=== PATIENT | female | born 1965 | race Caucasian/White ===

== ENCOUNTER 2017-07-15 10:46 | Emergency (ER) | payer BC ==
[~2017-07-15] VITALS: Ht 162.6 cm; Wt 94.3 kg
[~2017-07-15 10:46] MED LIST: CYCL10 PO; IBUP600 PO; IBUP800 PO; LORTAB 10-3251 EACH PO; METCAR750 PO; Mobic7.5 MG PO; Norco 10-325 T1 EACH PO; Norco 5-325 Ta1 EACH PO; OMEP20ER PO; OMEP40CA12 PO; OXYC10TA19; Percocet 10-321 EACH PO; Roxicodone5 MG PO; Sudogest60 MG PO; VICODIN HP 10-1 EACH PO; Valium5 MG PO
[2017-07-15] MEDS ORDERED: Omeprazole20 M1 PO (10:59)
[2017-07-15] MEDS ORDERED: VICODIN 5-3001 EACH PO (10:59)
[2017-07-15] MEDS ORDERED: TOPI25 PO (10:59)
[2017-07-15] MEDS ORDERED: MELO7.5 PO (10:59)
[2017-07-15] MEDS ORDERED: Cleocin HCl300 MG PO (11:31)
[2017-07-15] MEDS ORDERED: NAPR550 PO (11:31)
== END 2017-07-15 12:09 | disposition home or self-care (01) ==
LOC: ER 10:46
DX: K04.7 Periapical abscess without sinus (principal); Z88.0 Allergy status to penicillin; Z88.8 Allergy status to other drugs, medicaments and biological substances; Z91.018 Allergy to other foods; Z79.899 Other long term (current) drug therapy; Z87.891 Personal history of nicotine dependence
CPT/HCPCS: 96365; 96375; 99283; J1885

== ENCOUNTER → 2017-12-11 | Outpatient (CLI) | payer BC ==
[~2017-12-11] MED LIST changes: +Cleocin HCl300 MG PO; +MELO7.5 PO; +NAPR550 PO; +Omeprazole20 M1 PO; +TOPI25 PO; +VICODIN 5-3001 EACH PO
== END | disposition home or self-care (01) ==
LOC: LAB SHORT 14:15 → LAB SRC 14:15
DX: G89.4 Chronic pain syndrome (principal); Z79.899 Other long term (current) drug therapy
CPT/HCPCS: G0480

== ENCOUNTER 2019-04-30 16:07 | Emergency (ER) | payer BC ==
[~2019-04-30] VITALS: Ht 160 cm; Wt 93.0 kg
[2019-04-30 16:43] LABS: BASOPHILS ABSOLUTE AUTO 0.04 K/mm3 (0.00-0.23); BASOPHILS PERCENT AUTO 0 % (0-2); EOSINOPHILS ABSOLUTE AUTO 0.19 K/mm3 (0.00-0.68); EOSINOPHILS PERCENT AUTO 2 % (0-6); Hematocrit 43.3 % (33.0-51.0); Hemoglobin 13.8 g/dL (11.5-16.0); IMMATURE GRAN ABSOLUTE AUTO 0.02 K/mm3 (0.00-0.10); IMMATURE GRAN PERCENT AUTO 0 % (0-1); LYMPHOCYTES ABSOLUTE AUTO 3.13 K/mm3 (0.84-5.20); LYMPHOCYTES PERCENT AUTO 34 % (21-46); MONOCYTES PERCENT AUTO 6 % (4-13); Mean Corpuscular HGB 28.6 pg (26.0-34.0); Mean Corpuscular HGB Conc 31.9 g/dL (31.5-36.5); Mean Corpuscular Volume 90 fL (80-100); Mean Platelet Volume 9.2 fL (9.1-12.4); NEUTROPHILS ABSOLUTE AUTO 5.23 K/mm3 (1.96-9.15); NEUTROPHILS PERCENT AUTO 57 % (41-73); Platelet Count 358 K/mm3 (150-400); RDW Coefficient Variation 13.4 % (11.7-14.2); RDW Standard Deviation 44.3 fL (35.1-46.3); Red Blood Cell Count 4.82 M/mm3 (3.80-5.20); White Blood Cell Count 9.11 K/mm3 (4.00-11.30)
[2019-04-30 17:12] LABS: Alanine Aminotransfer (ALT/SGP 23 U/L (12-78); Albumin, Blood 3.6 g/dL (3.4-5.0); Alk Phos 72 U/L (50-136); Anion Gap 4 mmol/L (6-16); Aspartate Aminotrans (AST/SGOT 12 U/L (12-37); Bilirubin, Total 0.3 mg/dL (0.1-1.0); Blood Urea Nitrogen 13 mg/dL (8-24); Bun/Creatinine Ratio 16.2 (12.0-20.0); CO2, Blood 26 mmol/L (21-32); Calcium, Blood 8.5 mg/dL (8.5-10.1); Chloride, Blood 109 mmol/L (98-108); Globulin, Blood 3.7 g/dL (2.2-4.0); Glomerular Filtration Rate >60 (60-); Glucose, Blood 84 mg/dL (70-99); Potassium, Blood 3.8 mmol/L (3.5-5.5); Sodium, Blood 139 mmol/L (136-145); Total Protein, Blood 7.3 g/dL (6.4-8.2)
[2019-04-30 17:27] LABS: Source, Urine Clean Catch
[2019-04-30 17:46] LABS: Appearance, Urine Clear (Clear); Bilirubin, Urine Neg (Neg); Blood, Urine Neg (Neg); Color, Urine Yellow (P-Yellow); Glucose Qualitative, Urine Neg (Neg); Ketones, Urine Neg (Neg); Leukocyte Esterase, Urine Neg (Neg); Nitrite, Urine Neg (Neg); Protein, Urine Neg (Neg); Specific Gravity, Urine 1.015 (1.003-1.022); Urobilinogen, Urine NORM (Normal); pH, Urine 6.5 (5.0-8.0)
[2019-04-30] MEDS ORDERED: KETO10 PO (19:19)
[2019-04-30] MEDS ORDERED: LIDO700A20 TOP (19:19)
== END 2019-04-30 20:21 | disposition home or self-care (01) ==
LOC: ER 16:07
PROVIDERS: Physician Assistant
DX: S39.012A Strain of muscle, fascia and tendon of lower back, initial encounter (principal); F17.200 Nicotine dependence, unspecified, uncomplicated; Z88.0 Allergy status to penicillin; Z91.018 Allergy to other foods; Z88.8 Allergy status to other drugs, medicaments and biological substances; Z79.899 Other long term (current) drug therapy; X58.XXXA Exposure to other specified factors, initial encounter
CPT/HCPCS: 36415; 74176; 80053; 81003; 83690; 85025; 96374; 96375; 99284-25; A9270; J1885; J2405

== ENCOUNTER 2019-05-23 19:56 | Emergency (ER) | payer BC ==
[~2019-05-23] VITALS: Ht 160 cm; Wt 93.0 kg
[~2019-05-23 19:56] MED LIST changes: +KETO10 PO; +LIDO700A20 TOP
[2019-05-23 21:06] LABS: BASOPHILS ABSOLUTE AUTO 0.04 K/mm3 (0.00-0.23); BASOPHILS PERCENT AUTO 0 % (0-2); EOSINOPHILS ABSOLUTE AUTO 0.07 K/mm3 (0.00-0.68); EOSINOPHILS PERCENT AUTO 1 % (0-6); Hemoglobin 13.2 g/dL (11.5-16.0); IMMATURE GRAN ABSOLUTE AUTO 0.04 K/mm3 (0.00-0.10); IMMATURE GRAN PERCENT AUTO 0 % (0-1); LYMPHOCYTES PERCENT AUTO 35 % (21-46); MONOCYTES ABSOLUTE AUTO 0.82 K/mm3 (0.16-1.47); MONOCYTES PERCENT AUTO 7 % (4-13); Mean Corpuscular HGB 28.6 pg (26.0-34.0); Mean Corpuscular HGB Conc 32.2 g/dL (31.5-36.5); Mean Corpuscular Volume 89 fL (80-100); Mean Platelet Volume 9.4 fL (9.1-12.4); NEUTROPHILS ABSOLUTE AUTO 6.77 K/mm3 (1.96-9.15); NEUTROPHILS PERCENT AUTO 57 % (41-73); Platelet Count 345 K/mm3 (150-400); RDW Coefficient Variation 13.5 % (11.7-14.2); RDW Standard Deviation 44.1 fL (35.1-46.3); Red Blood Cell Count 4.61 M/mm3 (3.80-5.20); White Blood Cell Count 11.84 K/mm3 (4.00-11.30)
[2019-05-23 21:20] LABS: Alanine Aminotransfer (ALT/SGP 22 U/L (12-78); Albumin, Blood 3.8 g/dL (3.4-5.0); Albumin/Globulin Ratio 1.1 (0.8-1.8); Alk Phos 72 U/L (50-136); Anion Gap 3 mmol/L (6-16); Aspartate Aminotrans (AST/SGOT 11 U/L (12-37); Bilirubin, Total 0.4 mg/dL (0.1-1.0); Blood Urea Nitrogen 21 mg/dL (8-24); Bun/Creatinine Ratio 28.9 (12.0-20.0); CO2, Blood 27 mmol/L (21-32); Calcium, Blood 8.5 mg/dL (8.5-10.1); Chloride, Blood 110 mmol/L (98-108); Creatinine, Blood 0.73 mg/dL (0.40-1.00); Globulin, Blood 3.6 g/dL (2.2-4.0); Glomerular Filtration Rate >60 (60-); Glucose, Blood 101 mg/dL (70-99); Potassium, Blood 3.7 mmol/L (3.5-5.5); Sodium, Blood 140 mmol/L (136-145); Total Protein, Blood 7.4 g/dL (6.4-8.2); Troponin I <0.015 ng/mL (0.000-0.040)
== END 2019-05-24 01:15 | disposition home or self-care (01) ==
LOC: ER 19:56
PROVIDERS: Emergency Medicine
DX: R07.9 Chest pain, unspecified (principal); Z88.0 Allergy status to penicillin; Z88.8 Allergy status to other drugs, medicaments and biological substances; Z91.018 Allergy to other foods; Z79.899 Other long term (current) drug therapy; Z87.891 Personal history of nicotine dependence
CPT/HCPCS: 36415; 71046; 80053; 83690; 84484; 85025; 93005; 93010; 99285-25

== ENCOUNTER 2020-09-08 06:45 | Day surgery (SDC) | payer OTHER ==
[~2020-09-08] VITALS: Ht 160 cm; Wt 102.5 kg
[2020-09-08] MEDS ORDERED: ATOR20 (07:19)
--- NOTE | 2020-09-08 10:03 | NUR ---
09/08/20 1003 Alma An PT. C/O ABD. BEING UNCOMFORTABLE. PT. RATING A "4". DR. CHRISTOPHER EXPLAINED TO PT. THAT SHE HAD A TIGHT COLON TO GET MANEUVER AROUND. PT. ALSO INSTRUCTED THAT THERE COULD BE SOME AIR THAT WILL EVENTUALLY WILL ABSORB OR JUST TO PASS OUT. PT. DESCRIBES CRAMPING. PT. GIVEN A DIVERTICULOSIS/HIGH FIBER PAMPLET. PT. INSTRUCTED TO CALL IF ABD. DISCOMFORT DIDN'T GET BETTER.
--- NOTE | 2020-09-08 15:35 | NUR ---
09/08/20 1535 Candice Ramos LATE ENTRY FOR TODAY PATIENT WAS VERY DIFFICULT TO SEDATE FOR UPPER ENDOSCOPY. PT WOULD HOLD HER BREATH AND THEN HAVE COUGHING SPELLS. JAW THRUST WAS NEEDED INTERMITTENTLY TO KEEP HER O2 SATS ABOVE 90%. O2 WAS SET AT 5LPM. PATIENT SHOULD BE SEDATED BY ANESTHESIOLOGIST FOR NEXT PROCEDURE.
== END 2020-09-08 09:55 | disposition home or self-care (01) ==
LOC: ORSCSDS 06:45
PROVIDERS: Internal Medicine Gastroenterology
PROC: 0DB98ZX Excision of Duodenum, Via Natural or Artificial Opening Endoscopic, Diagnostic (ICD-10-PCS; principal; 2020-09-08 08:00)
PROC: 0DJD8ZZ Inspection of Lower Intestinal Tract, Via Natural or Artificial Opening Endoscopic (ICD-10-PCS; principal; 2020-09-08 08:00)
PROC: 0DB78ZX Excision of Stomach, Pylorus, Via Natural or Artificial Opening Endoscopic, Diagnostic (ICD-10-PCS; principal; 2020-09-08 08:00)
PROC: 0D758ZZ Dilation of Esophagus, Via Natural or Artificial Opening Endoscopic (ICD-10-PCS; principal; 2020-09-08 08:00)
DX: K22.2 Esophageal obstruction (principal); K44.9 Diaphragmatic hernia without obstruction or gangrene; K57.30 Diverticulosis of large intestine without perforation or abscess without bleeding; K64.8 Other hemorrhoids; Z12.11 Encounter for screening for malignant neoplasm of colon; Z80.0 Family history of malignant neoplasm of digestive organs; Z86.010 Personal history of colon polyps; J45.909 Unspecified asthma, uncomplicated; R11.2 Nausea with vomiting, unspecified; R10.13 Epigastric pain; E11.9 Type 2 diabetes mellitus without complications; Z79.899 Other long term (current) drug therapy; Z87.891 Personal history of nicotine dependence
CPT/HCPCS: 82947; 88305; 88342; C1726; J0461; J2405; J2704; J7120

== ENCOUNTER 2021-03-09 20:35 | Emergency (ER) | payer OTHER ==
[~2021-03-09] VITALS: Ht 160 cm; Wt 94.8 kg
[~2021-03-09 20:35] MED LIST changes: +ATOR20
== END 2021-03-09 21:54 | disposition left against medical advice (07) ==
LOC: ER 20:35
DX: T17.228A Food in pharynx causing other injury, initial encounter (principal); Z53.21 Procedure and treatment not carried out due to patient leaving prior to being seen by health care provider
CPT/HCPCS: 70360; 99283-25

== ENCOUNTER 2021-10-20 06:04 | Inpatient (IN) | payer OTHER ==
[~2021-10-20] VITALS: Ht 160 cm; Wt 108.0 kg
[~2021-10-20 06:04] MED LIST changes: -ATOR20; +ATOR20 PO
[2021-10-20] MEDS ORDERED: SUCR1 PO (06:26)
[2021-10-20] MEDS ORDERED: ALBU90OI INH (06:26)
--- NOTE | 2021-10-20 07:07 | NUR ---
Ambulatory in Day Surgery History, Chart, Medications and Allergies reviewed before start of procedure. Lungs clear T/O to Auscultation. Pre-Op teaching done. Pt verbalizes understanding.
--- NOTE | 2021-10-20 09:00 | NUR ---
10/20/21 0900 David Mccarty PT VOIDED JUST PRIOR TO ENTERING OR. NO MOJICA PER SURGEON. RIGHT UPPER EXTREMITY BLOCK PERFORMED BY ANESTHESIA PRIOR TO INTUBATING PATIENT.
--- NOTE | 2021-10-20 18:16 | NUR ---
Pt. Spiritual Care Request Pt. is in bed and welcomes my visit. Pt. is pleasant, even after a major surgery. Pt. is unsettled about the possibility of re-injuring her shoulder. Listen empathetically. Pt. displays evidence of focus, motivation and intention. Prayed with Pt. Pt. verbalized gratitude for the spiritual care visit.
--- NOTE | 2021-10-20 19:20 | NUR ---
SHIFT SUMMARY PATIENT NEW ADMIT TO UNIT FROM PACU FOLLOWING R REVERSE TOTAL SHOULDER WITH DR PAULINO. PATIENT SLEPT FOR FIRST COUPLE HOURSE. WOKE UP AND EXPERIENCED NAUSEA AND PAIN. MEDICATED PER EMAR. AMBULATED TO BATHROOM SBA AND VOIDED. RIGHT SHOULDER WITH PRINEO DRESSING OVER INCISION. C/D/I. RIGHT ARM IN SLING AND NWB. PLAN TO DISCHARGE HOME WHEN SHE CLEARS PHYSICAL THERAPY TOMORROW 10/21/21.
--- NOTE | 2021-10-21 04:36 | NUR ---
SHIFT SUMMARY PT POD 0 RIGHT SHOULDER REVERSAL. PT HAD SOME N/V DURING SHIFT CHANGE THAT RESOLVED AFTER BEING MEDICATED PER EMAR. PT HAS BEEN ABLE TO KEEP FLUIDS DOWN AND HAS NOT HAD ANY ISSUES WITH N/V FOR THE DURATION OF THE SHIFT. PT HAS HAD INTERMITTENT PAIN, PAIN CONTROLLED PER EMAR. RIGHT ARM REMAINS IN SLING. PT HAS BEEN UP AND AMBULATING. VITALS STABLE. PLAN IS FOR DISCHARGE TODAY. BED IN LOWEST POSITION, CALL LIGHT WITHIN REACH.
[2021-10-21 05:21] LABS: BASOPHILS ABSOLUTE AUTO 0.02 K/mm3 (0.00-0.23); BASOPHILS PERCENT AUTO 0 % (0-2); EOSINOPHILS PERCENT AUTO 0 % (0-6); Hematocrit 40.2 % (33.0-51.0); Hemoglobin 12.5 g/dL (11.5-16.0); IMMATURE GRAN ABSOLUTE AUTO 0.05 K/mm3 (0.00-0.10); IMMATURE GRAN PERCENT AUTO 0 % (0-1); LYMPHOCYTES ABSOLUTE AUTO 1.61 K/mm3 (0.84-5.20); LYMPHOCYTES PERCENT AUTO 11 % (21-46); MONOCYTES ABSOLUTE AUTO 0.94 K/mm3 (0.16-1.47); MONOCYTES PERCENT AUTO 6 % (4-13); Mean Corpuscular HGB 28.2 pg (26.0-34.0); Mean Corpuscular HGB Conc 31.1 g/dL (31.5-36.5); Mean Corpuscular Volume 91 fL (80-100); Mean Platelet Volume 9.3 fL (9.1-12.4); NEUTROPHILS ABSOLUTE AUTO 12.45 K/mm3 (1.96-9.15); NEUTROPHILS PERCENT AUTO 83 % (41-73); Platelet Count 279 K/mm3 (150-400); RDW Coefficient Variation 13.2 % (11.7-14.2); RDW Standard Deviation 44.6 fL (35.1-46.3); Red Blood Cell Count 4.43 M/mm3 (3.80-5.20); White Blood Cell Count 15.07 K/mm3 (4.00-11.30)
[2021-10-21 05:57] LABS: Bun/Creatinine Ratio 24.9 (12.0-20.0); Calcium, Blood 8.3 mg/dL (8.5-10.1); Creatinine, Blood 0.84 mg/dL (0.40-1.00); Magnesium, Blood 1.9 mg/dL (1.6-2.4); Potassium, Blood 4.3 mmol/L (3.5-5.5)
[2021-10-21] MEDS ORDERED: ACET500 PO (09:05)
[2021-10-21] MEDS ORDERED: Norco 5-325 Ta1 EACH PO (09:07)
--- NOTE | 2021-10-21 10:18 | NUR ---
DISCHARGE SUMMARY PT A&OX4, VSS/RA, PAIN MANAGED WELL WITH 5-10 NORCO, MAIA PO, VOIDING WELL, INDEPENDENT IN ROOM/DRESSED SELF, DECLINED WC TO DC AND GO HOME WITH , WITH ALL PERSONAL POSSESSIONS INCLUDING DC PACKET/SCRIPT SENT TO [facility] ON [address]. IV DC'D.
== END 2021-10-21 10:10 | disposition home or self-care (01) | DRG 483 ==
LOC: SURS 06:04 → PRE IP 07:30 → SURS 13:18
PROVIDERS: ADMIT Orthopaedic Surgery
PROC: 0RRJ00Z Replacement of Right Shoulder Joint with Reverse Ball and Socket Synthetic Substitute, Open Approach (ICD-10-PCS; principal; 2021-10-20 07:30)
DX: M12.811 Other specific arthropathies, not elsewhere classified, right shoulder (principal); Z68.41 Body mass index [BMI] 40.0-44.9, adult; E66.01 Morbid (severe) obesity due to excess calories; G89.29 Other chronic pain; K21.9 Gastro-esophageal reflux disease without esophagitis; J45.909 Unspecified asthma, uncomplicated; M79.7 Fibromyalgia; I10 Essential (primary) hypertension; E11.43 Type 2 diabetes mellitus with diabetic autonomic (poly)neuropathy; K31.84 Gastroparesis; Z87.81 Personal history of (healed) traumatic fracture; Z90.49 Acquired absence of other specified parts of digestive tract; Z98.890 Other specified postprocedural states; Z98.51 Tubal ligation status; Z90.710 Acquired absence of both cervix and uterus; Z88.0 Allergy status to penicillin; Z88.5 Allergy status to narcotic agent; Z91.018 Allergy to other foods; Z79.899 Other long term (current) drug therapy
CPT/HCPCS: 36415; 73030; 80048; 82947; 83735; 85025; 97110; 97161; 97530; A9270; C1776; J0171; J0690; J0735; J1100; J1170; J1885; J2250; J2370; J2405; J2704; J2765; J2795; J3010; J7120

== ENCOUNTER → 2023-06-07 | Outpatient (CLI) | payer OTHER ==
[~2023-06-07] MED LIST changes: +ACET500 PO; +ALBU90OI INH; +Flonase 0.05% N16 GM; +Lisinopril2.5 MG PO; +PREMARIN VAG CREAM VAG; +SUCR1 PO
[2023-06-07 13:03] LABS: Source, Urine Clean Catch
[2023-06-07 15:06] LABS: Appearance, Urine Hazy (Clear); Bilirubin, Urine Neg (Neg); Blood, Urine Neg (Neg); Color, Urine Yellow (P-Yellow); Glucose Qualitative, Urine Neg (Neg); Ketones, Urine Neg (Neg); Leukocyte Esterase, Urine Neg (Neg); Nitrite, Urine Neg (Neg); Protein, Urine 1+ (Neg); Specific Gravity, Urine 1.015 (1.003-1.022); Urobilinogen, Urine NORM (Normal)
[2023-06-07 15:26] LABS: Amorphous Light (0-Heavy); Bacteria Few /hpf; Red Blood Cells, Urine Not Seen /hpf (0-2); Squamous Epithelial Cells Mod /hpf (Few); White Blood Cells, Urine 0-2 /hpf (0-5)
== END ==
LOC: LAB SHORT 13:01 → LAB 13:01
PROVIDERS: Obstetrics & Gynecology
DX: Z01.818 Encounter for other preprocedural examination (principal)
CPT/HCPCS: 81001

== ENCOUNTER 2023-06-19 06:10 | Day surgery (SDC) | payer OTHER ==
[2023-06-19] VITALS (16 sets, daily range): BP systolic 112–151; BP diastolic 50–96
[~2023-06-19] VITALS: Ht 152.4 cm; Wt 94.6 kg
[2023-06-19] MEDS ORDERED: Lactated Ringer's 1,000 ML IV SCH (06:20)
[2023-06-19] MEDS ORDERED: propofoL 20 ML IV ONE (06:59)
[2023-06-19] MEDS ORDERED: Lidocaine HCl 2% 20 ML MDV ONE (06:59)
[2023-06-19] MEDS ORDERED: FentaNYL Citrate 50 MCG/ML 2 ML Injection ONE ×3 (07:00→09:50)
[2023-06-19] MEDS ORDERED: TRIDERM28.4 GM TOP (07:09)
[2023-06-19] MEDS ORDERED: METO5A PO (07:09)
[2023-06-19] MEDS ORDERED: DICLOFENAC SODI50 GM TOP (07:10)
[2023-06-19] MEDS ORDERED: LIDO700A20 TOP (07:12)
[2023-06-19] MEDS ORDERED: Bupivacaine 0.5% HCl 5 MG/ML 30MLVIAL ONE (07:13)
[2023-06-19] MEDS ORDERED: Ipratropium/Albuterol SulF 2.5-0.5MG/3 ML Amp INH ONE (07:15)
[2023-06-19] MEDS ORDERED: Midazolam HCl 1MG / ML 2ML Vial IV ONE (07:15)
[2023-06-19] MEDS ORDERED: Lidocaine HCl 2% Jelly 120MG/6ML SYR (20MG PER ML) ONE (07:18)
[2023-06-19] MEDS ORDERED: Rocuronium Bromide 10 MG/ML 5ML Injection IV ONE (07:19)
--- NOTE | 2023-06-19 07:34 | NUR ---
History, Chart, Medications and Allergies reviewed before start of procedure. Patient up to Ambulate independently. Gait steady. Pre-Op teaching done. Pt verbalizes understanding. Patient confirms NPO status and agrees with scheduled surgery. Patient States Post-Procedure ride home has been arranged.
[2023-06-19] MEDS ORDERED: EpiNEPhrine 1 MG/1 ML 1ML Vial ONE (07:37)
[2023-06-19] MEDS ORDERED: Dexamethasone Sod Phos 10 MG/ML 1ML VIAL ONE (07:45)
[2023-06-19] MEDS ORDERED: Ondansetron HCl 2 MG / ML 2ML Vial ONE (07:45)
[2023-06-19] MEDS ORDERED: Metoclopramide HCl 5MG / ML 2ML Vial IV PRN ×2 (08:00→11:15)
[2023-06-19] MEDS ORDERED: FentaNYL Citrate 50 MCG/ML 2 ML Injection IV PRN ×4 (08:00→09:35)
[2023-06-19] MEDS ORDERED: Ondansetron HCl 2 MG / ML 2ML Vial IV PRN ×3 (08:05→11:15)
[2023-06-19] MEDS ORDERED: Phenylephrine HCl 100 MCG/ML-NS 10MLSYR (1MG/10ML) ONE (08:07)
[2023-06-19] MEDS ORDERED: Glycopyrrolate 0.2 MG/ML 5ML VIAL ONE (08:26)
--- NOTE | 2023-06-19 08:26 | NUR ---
06/19/23 0826 Elisha Dobbs 30MLS OF BUPIVACAINE 0.5% MIXED WITH EPI 0.15MLS BY DR. FORDE TO CREATE A SOLUTION OF BUPIVACAINE 0.5% WITH EPI 1:200,000. SOLUTION POURED ONTO STERILE FIELD FOR USE DURING CASE.
[2023-06-19] MEDS ORDERED: Sugammadex Sodium 200 MG/2ML SDV (100 MG/ML) ONE (09:01)
[2023-06-19] MEDS ORDERED: Estradiol Vag Cream 0.1 MG/G 42.5 GM Tube VAG ONE (09:10)
[2023-06-19] MEDS ORDERED: Ketorolac Tromethamine 30mg Vial ONE (09:16)
[2023-06-19] MEDS ORDERED: Ketorolac Tromethamine 30mg Vial IV PRN (09:35)
[2023-06-19] MEDS ORDERED: Simethicone 80 MG Chew PO PRN (09:35)
[2023-06-19] MEDS ORDERED: Acetaminophen 500 MG Tab PO PRN (09:35)
[2023-06-19] MEDS ORDERED: Ibuprofen 400 MG Tab PO PRN (09:35)
[2023-06-19] MEDS ORDERED: FLU VACC QS2023-24(6MOS UP)/PF 60 MCG/0.5 ML SYRINGE IM SCH (09:35)
--- NOTE | 2023-06-19 12:36 | NUR ---
POST OP: REPORT RECEIVED FROM HORSE TRAINER KIM. PT TO UNIT AT 1040. PT IS A/O, VSS. REPORTS PAIN 6/10 AND MEDICATED PER EMAR. MOJICA DRAINING WELL, NO VAGINAL BLEED. PT ORIENTED TO ROOM, CALL LIGHT IN REACH
--- NOTE | 2023-06-19 12:37 | NUR ---
REPORT PASSED TO DANILO KOHLER
[2023-06-19 17:29] LABS: BASOPHILS ABSOLUTE AUTO 0.01 K/mm3 (0.00-0.23); BASOPHILS PERCENT AUTO 0 % (0-2); EOSINOPHILS PERCENT AUTO 0 % (0-6); Hematocrit 40.5 % (33.0-51.0); IMMATURE GRAN ABSOLUTE AUTO 0.04 K/mm3 (0.00-0.10); IMMATURE GRAN PERCENT AUTO 0 % (0-1); LYMPHOCYTES ABSOLUTE AUTO 0.66 K/mm3 (0.84-5.20); LYMPHOCYTES PERCENT AUTO 5 % (21-46); MONOCYTES ABSOLUTE AUTO 0.24 K/mm3 (0.16-1.47); MONOCYTES PERCENT AUTO 2 % (4-13); Mean Corpuscular HGB 28.6 pg (26.0-34.0); Mean Corpuscular HGB Conc 32.1 g/dL (31.5-36.5); Mean Corpuscular Volume 89 fL (80-100); Mean Platelet Volume 9.1 fL (9.1-12.4); NEUTROPHILS ABSOLUTE AUTO 11.63 K/mm3 (1.96-9.15); NEUTROPHILS PERCENT AUTO 93 % (41-73); Platelet Count 312 K/mm3 (150-400); RDW Coefficient Variation 13.6 % (11.7-14.2); RDW Standard Deviation 44.9 fL (35.1-46.3); Red Blood Cell Count 4.54 M/mm3 (3.80-5.20); White Blood Cell Count 12.58 K/mm3 (4.00-11.30)
--- NOTE | 2023-06-19 17:56 | NUR ---
PACKING OUT AND MOJICA REMOVED NOW
--- NOTE | 2023-06-19 18:50 | NUR ---
SHIFT SUMMARY PT A&OX4, VSS/RA, MAIA PO H20 ONLY/REFUSED FOOD (EVEN WITH DIETARY CONSULT - PT REFUSED ALL FOOD), AMB INDEPENDENTLY/DRESSED SELF, PAIN MANAGED WITH TYLENOL AND TORADOL. 1830 REMOVED PACKING AND THEN REMOVED MOJICA, PT HAS VOIDED A SMALL AMOUNT WITH A SMALL AMT OF RED BLOOD. PT DENIES N&V, PAIN, DIZZINESS, LIGHTHEADEDNESS. PLAN IS FOR PATIENT TO DISCHARGE WHEN SHE VOIDS A LARGER AMOUNT. WILL REPORT TO NEXT RN.
--- NOTE | 2023-06-19 20:40 | NUR ---
DISCHARGE SUMMARY A&0 x4. TOLERTATING ORALS. ABULATING/TOILETING INDEPENDENTLY. PT REPORTS PAIN MANAGED. DISCHARGED VIA POV c S/O DRIVING PATIENT @ EMERGENCY ENTRANCE. DISCHARGE INSTRUCTIONS GIVEN, ALL PERSONAL BELONGINGS WITH PATIENT.
== END 2023-06-19 20:40 | disposition home or self-care (01) ==
LOC: ORSCMMR 06:10 → SURS 06:10 → ORSCMMR 06:11 → ORD 07:30 → ORSCMMR 07:30 → SURS 10:33 → ORSCMMR 20:40
PROVIDERS: Obstetrics & Gynecology
PROC: 0JQC0ZZ Repair Pelvic Region Subcutaneous Tissue and Fascia, Open Approach (ICD-10-PCS; principal; 2023-06-19 07:30)
DX: N81.6 Rectocele (principal); N81.5 Vaginal enterocele; K21.9 Gastro-esophageal reflux disease without esophagitis; E11.9 Type 2 diabetes mellitus without complications; F32.A Depression, unspecified; M79.7 Fibromyalgia; Z79.899 Other long term (current) drug therapy
CPT/HCPCS: 36415; 82947; 85025; 94762; A9270; J0171; J1100; J1885; J2250; J2371; J2405; J2704; J3010; J7120

== ENCOUNTER 2023-11-22 14:03 | Day surgery (SDC) | payer OTHER ==
[~2023-11-22] VITALS: Ht 162.6 cm; Wt 95.3 kg
[~2023-11-22 14:03] MED LIST changes: +Atropine Sulfate 0.1 MG/ML 10ML SYR ONE; +DICLOFENAC SODI50 GM TOP; +Glycopyrrolate 0.2 MG/ML 1MLVIAL ONE; +Lactated Ringer's 1,000 ML IV ONE; +Lidocaine 2% 5 ML SDV ONE; +Lidocaine HCl/Pf 1% 5 ML VIAL ONE; +METO5A PO; +Methylene Blue 1% 100 MG/10 ML VIAL ONE; +Ondansetron HCl 2 MG / ML 2ML Vial ONE; +TRIDERM28.4 GM TOP; +ePHEDrine Sulfate 50 MG/ML 1ML Injection ONE; +propofoL 50 ML IV ONE
[2023-11-22] MEDS ORDERED: ONDA4 (14:23)
--- NOTE | 2023-11-22 15:13 | NUR ---
11/22/23 1513 Alma An S CBD 60, DR. OAKLEY NOTIFIED. PT. NOT HAVING ANY SYMPTOMS OF DIZZINESS, PT. VERBALIZES FEELING FINE. NO ORDERS GIVEN. DR. OAKLEY
[2023-11-22] MEDS ORDERED: Lactated Ringer's 1,000 ML IV ONE (15:15)
[2023-11-22] MEDS ORDERED: Ipratropium/Albuterol SulF 2.5-0.5MG/3 ML Amp ONE (15:30)
--- NOTE | 2023-11-22 15:36 | NUR ---
11/22/23 1536 Alma An PT. SATS 90-93% RA LAYING IN BED. PT. HAS ASTHMA DOESN'T FEEL SOB. DR. NEGRETE NOTIFIED & ORDERED JUNO NEB.
[2023-11-22] MEDS ORDERED: Lidocaine HCl 4% 5 ML SDA ONE (15:48)
[2023-11-22] MEDS ORDERED: propofoL 50 ML IV ONE (16:29)
[2023-11-22 17:08] VITALS: BP 122/87
--- NOTE | 2023-11-22 17:10 | NUR ---
11/22/23 1710 Angela Vazquez PT HAVING SOME ABDOMENAL CRAMPING
== END 2023-11-22 17:30 | disposition home or self-care (01) ==
LOC: ORSCSDS 14:03
PROVIDERS: Internal Medicine Gastroenterology
PROC: 0DJ08ZZ Inspection of Upper Intestinal Tract, Via Natural or Artificial Opening Endoscopic (ICD-10-PCS; principal; 2023-11-22 15:00)
PROC: 0DJD8ZZ Inspection of Lower Intestinal Tract, Via Natural or Artificial Opening Endoscopic (ICD-10-PCS; principal; 2023-11-22 15:00)
DX: R10.31 Right lower quadrant pain (principal); K59.04 Chronic idiopathic constipation; R13.10 Dysphagia, unspecified; K31.84 Gastroparesis; K44.9 Diaphragmatic hernia without obstruction or gangrene; K57.30 Diverticulosis of large intestine without perforation or abscess without bleeding; K21.9 Gastro-esophageal reflux disease without esophagitis; E11.9 Type 2 diabetes mellitus without complications; Z86.010 Personal history of colon polyps; M79.7 Fibromyalgia; I10 Essential (primary) hypertension; J45.909 Unspecified asthma, uncomplicated; R63.4 Abnormal weight loss; E66.01 Morbid (severe) obesity due to excess calories; Z68.37 Body mass index [BMI] 37.0-37.9, adult; Z86.16 Personal history of COVID-19; Z79.899 Other long term (current) drug therapy
CPT/HCPCS: J0461; J2001; J2405; J2704; J7120; Q9968

== ENCOUNTER → 2024-01-14 | Outpatient (CLI) | payer OTHER ==
[~2024-01-14] MED LIST changes: -Atropine Sulfate 0.1 MG/ML 10ML SYR ONE; -Glycopyrrolate 0.2 MG/ML 1MLVIAL ONE; -Lactated Ringer's 1,000 ML IV ONE; -Lidocaine 2% 5 ML SDV ONE; -Lidocaine HCl/Pf 1% 5 ML VIAL ONE; -Methylene Blue 1% 100 MG/10 ML VIAL ONE; +ONDA4; -Ondansetron HCl 2 MG / ML 2ML Vial ONE; -ePHEDrine Sulfate 50 MG/ML 1ML Injection ONE; -propofoL 50 ML IV ONE
== END ==
LOC: LAB 17:56 → LAB SHORT 17:56
DX: M54.9 Dorsalgia, unspecified (principal)
CPT/HCPCS: 87086

== ENCOUNTER 2024-06-15 09:57 | Emergency (ER) | payer OTHER ==
[~2024-06-15] VITALS: Ht 160 cm; Wt 90.7 kg
[2024-06-15] MEDS ORDERED: HyDROXyzine HCl 25 MG Tab PO ONE (10:10)
[2024-06-15] MEDS ORDERED: Ketorolac Tromethamine 30mg Vial IV ONE (10:10)
[2024-06-15] MEDS ORDERED: NS 1,000 ML IV SCH (10:10)
[2024-06-15 10:26] LABS: BASOPHILS ABSOLUTE AUTO 0.02 K/mm3 (0.00-0.23); BASOPHILS PERCENT AUTO 0 % (0-2); EOSINOPHILS ABSOLUTE AUTO 0.18 K/mm3 (0.00-0.68); EOSINOPHILS PERCENT AUTO 2 % (0-6); Hematocrit 42.2 % (33.0-51.0); Hemoglobin 13.9 g/dL (11.5-16.0); IMMATURE GRAN ABSOLUTE AUTO 0.03 K/mm3 (0.00-0.10); IMMATURE GRAN PERCENT AUTO 0 % (0-1); LYMPHOCYTES ABSOLUTE AUTO 2.55 K/mm3 (0.84-5.20); LYMPHOCYTES PERCENT AUTO 30 % (21-46); MONOCYTES ABSOLUTE AUTO 0.46 K/mm3 (0.16-1.47); MONOCYTES PERCENT AUTO 6 % (4-13); Mean Corpuscular HGB Conc 32.9 g/dL (31.5-36.5); Mean Corpuscular Volume 88 fL (80-100); Mean Platelet Volume 8.8 fL (9.1-12.4); NEUTROPHILS PERCENT AUTO 62 % (41-73); Platelet Count 323 K/mm3 (150-400); RDW Coefficient Variation 13.6 % (11.7-14.2); RDW Standard Deviation 44.2 fL (35.1-46.3); Red Blood Cell Count 4.79 M/mm3 (3.80-5.20); White Blood Cell Count 8.44 K/mm3 (4.00-11.30)
[2024-06-15 10:57] LABS: CORONAVIRUS COVID-19 AG Negative (NEGATIVE); INFLUENZA A AG Negative (NEGATIVE); INFLUENZA B AG Negative (NEGATIVE)
[2024-06-15 10:57] LABS: Albumin, Blood 3.9 g/dL (3.4-5.0); Bilirubin, Total 0.6 mg/dL (0.1-1.0); Bun/Creatinine Ratio 27.7 (12.0-20.0); Calcium, Blood 9.1 mg/dL (8.5-10.1); Creatinine, Blood 0.83 mg/dL (0.40-1.00); Globulin, Blood 3.8 g/dL (2.2-4.0); Magnesium, Blood 1.9 mg/dL (1.6-2.4); Potassium, Blood 4.1 mmol/L (3.5-5.5); Total Protein, Blood 7.7 g/dL (6.4-8.2)
[2024-06-15 13:30] VITALS: BP 123/75
== END 2024-06-15 13:55 | disposition home or self-care (01) ==
LOC: ER 09:57
PROVIDERS: Student in an Organized Health Care Education/Training Program
DX: R07.89 Other chest pain (principal); I10 Essential (primary) hypertension; E78.5 Hyperlipidemia, unspecified; K21.9 Gastro-esophageal reflux disease without esophagitis; Z88.0 Allergy status to penicillin; Z91.018 Allergy to other foods; Z88.8 Allergy status to other drugs, medicaments and biological substances; Z79.83 Long term (current) use of bisphosphonates; Z79.02 Long term (current) use of antithrombotics/antiplatelets; Z79.899 Other long term (current) drug therapy; Z87.891 Personal history of nicotine dependence
CPT/HCPCS: 71046; 80053; 83735; 83880; 84145; 84484; 85025; 87428-QW; 93005; 93010; 96374; 99285-25; A9270; J1885; J7030